=== PATIENT | male | born 1985 | race Caucasian/White ===

== ENCOUNTER 2018-01-26 01:40 | Emergency (ER) | payer OTHER ==
[2018-01-26 01:56] VITALS: RESP 16; TEMP 97.5
[2018-01-26] MEDS ORDERED: LIDOCAINE 1% INJ 10MG/ML (20 ML MDV) SQ STA (03:18)
[2018-01-26] MEDS ORDERED: LIDOCAINE 1% INJ 10MG/ML (20 ML MDV) SQ ONE (03:30)
--- NOTE | 2018-01-26 04:31 | XR ---
EXAMINATION TYPE: XR hand complete RT DATE OF EXAM: 01/26/2018 COMPARISON: NONE HISTORY: Fifth digit pain TECHNIQUE: 3 views FINDINGS: There is a posterior dislocation of the DIP joint of the little finger. I see no fracture. There is some overriding of the phalanges. Metacarpals are intact. Carpal bones appear intact. IMPRESSION: Posterior dislocation of the DIP joint of the little finger.
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
[2018-01-26] MEDS ORDERED: PENICILLIN VK 500MG STARTER 4 TAB BTL PO STA (05:21)
[2018-01-26 05:30] VITALS: BP 106/67; PULSE 73
== END 2018-01-26 05:32 | disposition home or self-care (01) ==
LOC: EC 01:40
DX: S63.296A Dislocation of distal interphalangeal joint of right little finger, initial encounter (principal); S01.511A Laceration without foreign body of lip, initial encounter; F17.200 Nicotine dependence, unspecified, uncomplicated; V89.2XXA Person injured in unspecified motor-vehicle accident, traffic, initial encounter; Y92.410 Unspecified street and highway as the place of occurrence of the external cause; Z53.8 Procedure and treatment not carried out for other reasons
CPT/HCPCS: 73130; 99284; 26770; 12013; J2001

== ENCOUNTER 2018-10-22 17:44 | Emergency (ER) | payer BC ==
[2018-10-22 17:57] VITALS: BP 115/74; PULSE 60; RESP 18; TEMP 98.1
[2018-10-22 20:15] LABS: Appearance,Urine Clear (Clear); Bilirubin,Urine Negative (Negative); Blood,Urine Negative (Negative); Color,Urine Colorless; Glucose,Urine (UA) Negative (Negative); Ketones,Urine Negative (Negative); Leukocyte Esterase,Urine Negative (Negative); Nitrite,Urine Negative (Negative); Protein,Urine Negative (Negative); Specific Gravity,Urine 1.005 (1.001-1.035); Urobilinogen,Urine <2.0 mg/dL (<2.0)
[2018-10-22] MEDS ORDERED: cefTRIAXone 250 MG VIAL IM STA (20:15)
[2018-10-22] MEDS ORDERED: AZITHROMYCIN 500 MG TAB PO STA (20:16)
--- NOTE | 2018-10-22 20:16 | ED ---
Abdominal Pain HPI - General Chief Complaint: Abdominal Pain Stated Complaint: testicular pain Time Seen by Provider: 10/22/18 18:47 Source: patient Mode of arrival: ambulatory Limitations: no limitations - History of Present Illness Initial Comments: 33-year-old male presenting for perineal pain x 4 months on and off. She states she has had slight testicular and perineal pain. He states that the pain in the perineal region occurs when he is done urinating. Patient denies fevers. Patient states he does have some pressure in his bladder. Denies urgency or frequency. Patient denies any severe abdominal pain. Patient denies a severe testicular pain, nor testicular swelling or discoloration. Patient is concerned of infection present to emergency for evaluation. Remaining ROS (-). Upon arrival patient's vital signs the etc. limits he appears normal signs acute distress. - Related Data Previous Rx's Medication Instructions Recorded Penicillin V Potassium [Pen Vee K] 500 mg PO QID #28 tablet 01/26/18 Doxycycline [Vibramycin] 100 mg PO BID 14 Days #28 capsule 10/22/18 Allergies Allergy/AdvReac Type Severity Reaction Status Date / Time No Known Allergies Allergy Verified 10/22/18 17:57 Review of Systems ROS Statement: Those systems with pertinent positive or pertinent negative responses have been documented in the HPI. ROS Other: All systems not noted in ROS Statement are negative. Past Medical History Past Medical History: No Reported History History of Any Multi-Drug Resistant Organisms: None Reported Additional Past Surgical History / Comment(s): bladder. mass removed from right armpit. Past Psychological History: No Psychological Hx Reported Smoking Status: Current every day smoker Past Alcohol Use History: Rare Past Drug Use History: None Reported General Exam - General Exam Comments Initial Comments: General: The patient is awake and alert, in no distress, and does not appear acutely ill. Eye: Pupils are equal, round and reactive to light, extra-ocular movements are intact. No nystagmus. There is normal conjunctiva bilaterally. No signs of icterus. Cardiovascular: There is a regular rate and rhythm. No murmur, rub or gallop is appreciated. Respiratory: Lungs are clear to auscultation, respirations are non-labored, breath sounds are equal. No wheezes, stridor, rales, or rhonchi. Gastrointestinal: Soft, non-distended, non-tender abdomen without masses or organomegaly noted. There is no rebound or guarding present. No CVA tenderness. Bowel sounds are unremarkable. Testicular exam per collided. No evidence of indirect or direct hernia on physical examination. No testicular swelling or redness. No tenderness with palpation of the epididymis. Patient has no palpable masses. Patient has some slight tenderness in the perineal region. Musculoskeletal: Normal ROM, no tenderness. Strength 5/5. Sensation intact. Pulses equal bilaterally 2+. Neurological: A&O x 3. CN II-XII intact, There are no obvious motor or sensory deficits. Coordination appears grossly intact. Speech is normal. Skin: Skin is warm and dry and no rashes or lesions are noted. Psychiatric: Cooperative, appropriate mood & affect, normal judgment. Limitations: no limitations Course Vital Signs 10/22/18 17:54 Temperature 98.1 F Pulse Rate 60 Respiratory 18 Rate Blood Pressure 115/74 O2 Sat by Pulse 97 Oximetry - Reevaluation(s) Reevaluation #1: Testicular exam was performed with BAMBI Drake. Medical Decision Making - Medical Decision Making 33-year-old male presenting for abdominal pain testicular perineal pain. Patient abdominal exam benign no pain to palpation. Patient states occurs after eating. He states is diffuse. Patient is not sure if it is related to the pain in the perineal region. Patient is tender to palpation of the area. Patient has no testicular swelling or abnormalities. Normal ultrasound the testicles. Urinalysis unremarkable. Patient was treated for STDs given doxycycline prescription L patient is instructed to follow-up with urologist. Patient is also instructed to follow-up with primary care provider for abdominal pain after eating. I recommended patient's begin taking Zantac. Patient is agreeable to this care plan discharge at this time. I discussed case by attending provider who is agreeable to this care plan. - Lab Data Lab Results 10/22/18 Range/Units 20:00 Urine Color Colorless Urine Appearance Clear (Clear) Urine pH 6.0 (5.0-8.0) Ur Specific Wiggins 1.005 (1.001-1.035) Urine Protein Negative (Negative) Urine Glucose (UA) Negative (Negative) Urine Ketones Negative (Negative) Urine Blood Negative (Negative) Urine Nitrite Negative (Negative) Urine Bilirubin Negative (Negative) Urine Urobilinogen <2.0 (<2.0) mg/dL Ur Leukocyte Esterase Negative (Negative) Disposition Clinical Impression: Perineal pain, Chronic pain in testicle Disposition: HOME SELF-CARE Condition: Good Additional Instructions: Please use medication as discussed. Please follow-up with family doctor in the next 2 days, and urology for further evaluation/treatment. Please return to emergency room if the symptoms increase or worsen or for any other concerns. Prescriptions: Doxycycline [Vibramycin] 100 mg PO BID 14 Days #28 capsule Is patient prescribed a controlled substance at d/c from ED?: No Referrals: None,Stated [Primary Care Provider] - 1-2 days Clay Bermeo MD [STAFF PHYSICIAN] - 1-2 days Time of Disposition: 20:30
--- NOTE | 2018-10-22 20:35 | US ---
EXAMINATION TYPE: US scrotum with doppler. Grayscale and color Doppler Duplex imaging performed of t gelacio scrotum. DATE OF EXAM: 10/22/2018 COMPARISON: NONE CLINICAL HISTORY: Pain. Left testicle pain x 4 months. EXAM MEASUREMENTS: TESTICLES: Right Testicle: 5.5 x 2.8 x 3.0 cm Left Testicle: 4.6 x 3.0 x 2.6 cm EPIDIDYMIS HEAD: Right Epididymis: 1.0 x 1.0 x 0.9 cm Left Epididymis: 1.4 x 1.4 x 0.7 cm Doppler performed to assess for testicular vascularity; good bilateral color flow and waveforms are s een. There is no evidence of testicular torsion. Presence of hydroceles: bilateral. Right: 1.4 x 0.9 x 1.4 cm. Left: 3.1 x 1.7 x 1.4 cm. Presence of varicoceles: none seen Blood flow appears symmetrical. IMPRESSION: 1. Normal scrotal ultrasound. 2. No suspicious changes within the left testicle
[2018-10-24 07:24] LABS: N. gonorrhoeae,PCR Negative (Neg,Equiv); Neisseria Source Urine
[2018-10-24 11:02] LABS: C. trachomatis,PCR Negative (Neg,Equiv); Chlamydia trachomatis Source Urine
== END 2018-10-22 21:03 | disposition home or self-care (01) ==
LOC: EC 17:44
DX: G89.29 Other chronic pain (principal); N50.819 Testicular pain, unspecified; R10.2 Pelvic and perineal pain; F17.200 Nicotine dependence, unspecified, uncomplicated
CPT/HCPCS: 81003; 87491; 87591; 93975; 76870; 99284; 96372; J0696

== ENCOUNTER → 2020-07-27 | Outpatient (CLI) | payer BC ==
--- NOTE | 2020-07-27 09:27 | US ---
EXAMINATION TYPE: US venous doppler duplex [facility] DATE OF EXAM: 07/27/2020 9:07 AM COMPARISON: NONE CLINICAL HISTORY: I83.2 Varicose veins of lower extremities. Patient states he has a superficial vein that runs on top of left knee cap and at times it bothers him, no h/o dvt SIDE PERFORMED: Bilateral TECHNIQUE: The lower extremity deep venous system is examined utilizing real time linear array sonog damaso with graded compression, doppler sonography and color-flow sonography. VESSELS IMAGED: Common Femoral Vein Deep Femoral Vein Greater Saphenous Vein * Femoral Vein Popliteal Vein Small Saphenous Vein * Proximal Calf Veins (* superficial vessels) Right Leg: Negative for DVT Left Leg: Negative for DVT At the site of patient's intermittent symptoms, there is a patent superficial vein anterior to the le ft patella. IMPRESSION: 1. No evidence of deep venous thrombosis of the bilateral lower extremity veins.
== END | disposition home or self-care (01) ==
LOC: RADUSWWP 08:40
PROVIDERS: ATTEND Internal Medicine
DX: I83.202 Varicose veins of unspecified lower extremity with both ulcer of calf and inflammation (principal)
CPT/HCPCS: 93970